=== PATIENT | male | born 1970 | race Caucasian/White ===

== ENCOUNTER 2023-06-25 22:31 | Emergency (ER) | payer OTHER, SELFPAY ==
[2023-06-25 22:31] VITALS: BP 167/103
--- NOTE | 2023-06-25 23:31 | ED.GENMED ---
History of Present Illness
<JEAN Courtney - Last Filed: 06/26/23 01:08>
General
Chief Complaint: Skin Problem
Source: patient
Exam Limitations: none
Time Seen by Provider: 06/25/23 23:21
Nursing documentation reviewed up to this point in time: agreed with
Travel History
Have you had any contact with someone who has COVID-19?: No
Do you have any symptoms of coronavirus? Fever > 100 degrees, chills, cough, shortness of breath, sore throat, loss of taste or smell, muscle aches, or headache?: No
History of Present Illness
History of Present Illness:
This is a 52 year old male, with a PMH of GERD, who presents to the ED c/o laceration on his left index finger. Pt states he was cutting cheese using a knife and the cheese was harder than he expected. The knife slipped and hit his left index
finger. Pt states he was able to stop the bleeding for a little bit by holding pressure, but it has started to bleed again. He denies any changes in sensation, difficulty moving his finger, CP, SOB, lightheadedness, or dizziness. He thinks his last
tetanus shot was in 2020 at this hospital.
Past History
<JEAN Courtney - Last Filed: 06/26/23 01:08>
Past History
ED Past Medical History: GERD
ED Past Surgical History: None
Social History
Tobacco: Non-smoker
Alcohol: Occasional
Drug: None
Personal:
Living: with family
Employment: Employed (statistical programmer analyst)
Review of Systems
<JEAN Courtney - Last Filed: 06/26/23 01:08>
Review of Systems
Allergies reviewed?: Yes
All Other Systems: ROS reviewed and negative except as documented in HPI and ROS
Constitutional: Reports no symptoms
EENT: Reports no symptoms
Respiratory: Reports no symptoms
Cardiac: Reports no symptoms
ABD/GI: Reports no symptoms
: Reports no symptoms
Musculoskeletal: Reports no symptoms
Skin: Reports other (laceration along left index finger)
Neurological: Reports no symptoms
Psychiatric: Reports anxiety
Phy Exam
<JEAN Courtney - Last Filed: 06/26/23 01:08>
General Physical Exam
General Presentation: no apparent distress
General age: appears stated age
General Skin: warm and dry
General Habitus: normal
General Mental: alert
General Hydration: appears well hydrated
ENT Exam
ENT Exam: neck supple and normocephalic
Cardiovascular Exam
Cardiovascular Exam: regular rate/rhythm, no edema, no murmur and normal peripheral pulses
Pulmonary Exam
Pulmonary Exam: lungs clear, no respiratory distress, no rales, no crackles, no rhonchi, no wheezing and no cough
Gastrointestinal Exam
Gastrointestinal Exam: normal bowel sounds, non tender, soft and non distended
Neurological Exam
Neurological Exam: alert and oriented x3
Musculoskeletal Exam
Musculoskeletal Exam: full ROM, no edema, neuro vasc intact and other (left index finger neurovascularly intact, good capillary refill. good passive and active ROM including preserved flexion and extension. Normal strength and sensation.)
Skin Exam
Skin Exam: laceration (1.5 cm laceration along left index finger)
Psychiatric Exam
Psychiatric Exam: normal mood/affect
Course
<JEAN Courtney - Last Filed: 06/26/23 01:08>
Vital Signs
Initial and Last Documented VS:
Initial Vital Signs
Temp Pulse Resp BP Pulse Ox
98.1 F 72 18 167/103 99
06/25/23 22:31 06/25/23 22:31 06/25/23 22:31 06/25/23 22:31 06/25/23 22:31
Last Documented Vital Signs
Temp Pulse Resp BP Pulse Ox
98.1 F 72 18 167/103 99
06/25/23 22:31 06/25/23 22:31 06/25/23 22:31 06/25/23 22:31 06/25/23 22:31
<Noah Mcgee DO - Last Filed: 06/26/23 00:17>
Vital Signs
Initial and Last Documented VS:
Initial Vital Signs
Temp Pulse Resp BP Pulse Ox
98.1 F 72 18 167/103 99
06/25/23 22:31 06/25/23 22:31 06/25/23 22:31 06/25/23 22:31 06/25/23 22:31
Last Documented Vital Signs
Temp Pulse Resp BP Pulse Ox
98.1 F 72 18 167/103 99
06/25/23 22:31 06/25/23 22:31 06/25/23 22:31 06/25/23 22:31 06/25/23 22:31
Procedures
<JEAN Courtney - Last Filed: 06/26/23 01:08>
Laceration Closure
Left Second Finger:
Status of Wound: clean
Size of Wound in cm: 1.5
Description of Wound Edges: flap-poorly vascularized
Preparation: cleaned with saline
Revision/Debridement: routine- no revision
Wound exploration: no tendon involvement
Type of Closure: single layer closure
Skin Closure Material: other (steri-strips)
<JEAN Courtney - Last Filed: 06/26/23 01:08>
*Critical Care Note
Total Time (30-74mins, 75-104mins- exclusive of procedures): Not Applicable
ED Attending Note
<JEAN Courtney - Last Filed: 06/26/23 01:08>
-
Portions of this chart may have been created with voice recognition software.� Occasional wrong word or��sound alike� substitutions may have occurred due to the inherent limitations of voice recognition software.
<Noah Mcgee DO - Last Filed: 06/26/23 00:17>
ED Attending Note
Patient seen and examined by attending physician: Yes
I performed the substantive portion of visit, reviewed & personally made and approve the management plan that is documented in note by myself or BINH.: Yes
ED Attending Note:
Pleasant 52-year-old male who presents with left index finger laceration. He sustained this while cutting cheese prior to arrival. Patient used direct pressure to control the bleeding. Patient had a recent tetanus shot and is up-to-date. 1.5 cm
laceration at the tip of the left index finger. The flap is nonvascularized and barely attached. Laceration repair will consist of Steri-Strips. Tetanus shot is up-to-date. Patient was seen in conjunction with the PA student. I have reviewed
and agree with the history and treatment plan presented. On my independent physical exam, patient is awake, alert, and oriented x3, no acute distress.
Discharge Plan
Departure
Patient Disposition: Home (Routine Discharge)
Date of Disposition: 06/26/23
Time of Disposition: 00:15
Patient with high blood pressure during this ER visit?: Yes
Condition: Good
Discharge Problem:
Finger laceration
Instructions: Wound Care (DC), Steri-Strips over Glued Wound
Prescriptions:
No Action
tobramycin 1 DROP drops
2 drops LEFT EYE Q4HWA Qty: 1 0RF
amoxicillin-pot clavulanate 1 TABLET tablet
1 tab PO Q12 Qty: 14 0RF
Referrals:
Michael Aaron DO [Family Provider] -
Activity Restrictions/Additional Instructions:
It was a pleasure meeting you and taking part in your care. We hope for your continued healing and wellness.
Please read discharge instructions in their entirety. However, they are for general education and may not describe your exact diagnosis at discharge. Information on your ER visit and medical conditions were discussed with you along with appropriate
follow up information...
If indicated, please take your medications as instructed and indicated on discharge paperwork.
Please schedule a follow up appointment as directed. Call to schedule an appointment
Please return to the emergency department with ANY change in, persisting, or worsening of symptoms. If any of your symptoms do not improve, or persist, or become more severe within 6-12 hours, please return to the emergency department for further
care.
Please return to the emergency department if you develop a headache, neck pain/stiffness, fever greater than 100.4F, chest pain, shortness of breath, persistent nausea, vomiting, slurred speech, difficulty walking, numbness/tingling, weakness, signs
of infection or any other symptoms that are worrisome to you.
If you have any questions or concerns please do not hesitate to call the Hospital at or E-mail me directly at [email or web address]
Interventions
Interventions:
*Risk Screen - Suicide Last Done: 06/25/23 22:31
*General Assessment Last Done: 06/25/23 22:31
*Neglect/Abuse Screening Last Done: 06/25/23 22:31
ED- Fall Risk Assessment Last Done: 06/26/23 00:33
*ED COVID-19 Vaccine History Last Done: 06/25/23 22:31
*Nursing Disposition Last Done: 06/26/23 00:33
ED-Skin Assessment Last Done: 06/25/23 23:55
Discharge Date and Time
Discharge Date/Time: 06/26/23 00:34
== END 2023-06-26 00:34 | disposition home or self-care (01) ==
LOC: EMR 22:31
PROVIDERS: EMERGENCY PHYSICIAN Student in an Organized Health Care Education/Training Program; FAMILY PHYSICIAN Family Medicine
DX: S61.211A Laceration without foreign body of left index finger without damage to nail, initial encounter (principal); W26.0XXA Contact with knife, initial encounter; R03.0 Elevated blood-pressure reading, without diagnosis of hypertension
CPT/HCPCS: 99282; 12001